=== PATIENT | female | born 1935 | race Caucasian/White ===

== ENCOUNTER → 2018-03-06 10:17 | Outpatient (CLI) | payer MEDICARE, OTHER, SELFPAY ==
--- NOTE | 2018-03-06 10:22 | BI_ITS ---
MAMMOGRAPHY - BILATERAL SCREENING REASON FOR EXAM: Female, 82 years old. Routine annual screening examination. PERTINENT HISTORY: Personal history of breast cancer. Mother with breast cancer. Aunts with breast cancer. History of prior bilateral lumpectomies. TECHNIQUE: Digital bilateral breast brown (3D mammographic acquisition) in the CC and MLO projections. 2-D mediolateral oblique (MLO) and craniocaudad (CC) views of both breasts were obtained. CAD: Full Field Digital Mammography with Computer Added Detection was performed. COMPARISON: Comparison is made with prior study dated February 08, 2016 and January 15, 2015 FINDINGS: Breast Composition: The breasts are heterogeneously dense, which may obscure small masses. There are no dominant masses or suspicious calcifications. Once again, the patient is status post bilateral lumpectomies with resultant deformities of both breasts. This is unchanged. No new mass lesion or cluster microcalcification is seen. No other significant abnormalities are identified. There has been no significant change since the prior study. BI/SCREENING MAMM (CAD), BILAT IMPRESSION: Stable bilateral screening mammogram. Yearly follow-up mammogram recommended. (A) ASSESSMENT CATEGORY: BIRADS Category 2: Benign. A letter regarding these results will be sent to the patient by the facility within 30 days. Approximately 10% of breast cancers are not detected by mammography. A normal mammogram should not delay biopsy of a clinically suspicious abnormality. [id number] Electronically Signed: Luis Benitez MD at 8:35 EST Tel [phone], Service support ,
== END ==
PROVIDERS: Family Provider Family Medicine; PCP Family Medicine; Referring Provider Radiology Radiation Oncology; Visit Provider Radiology Radiation Oncology
DX: Z12.31 Encounter for screening mammogram for malignant neoplasm of breast (principal); C50.812 Malignant neoplasm of overlapping sites of left female breast; Z80.3 Family history of malignant neoplasm of breast
CPT/HCPCS: 77063; 77067

== ENCOUNTER → 2018-06-10 | Outpatient (CLI) | payer MEDICARE, OTHER, SELFPAY ==
--- NOTE | 2018-06-10 11:00 | MRI_ITS ---
STUDY: MRI LUMBAR SPINE WITHOUT CONTRAST REASON FOR EXAM: Female, 83 years old. Low back pain and left-sided radicular symptoms. TECHNIQUE: Standardized fat and water weighted pulse sequences were obtained in the sagittal and axial planes. COMPARISON: None FINDINGS: T12-L1: Normal endplates. Normal disc height, signal and morphology. Normal bilateral facet joints. Normal central canal and bilateral lateral recesses. Normal bilateral intervertebral neural foramina. Normal lumbar lordosis. There is no substantial scoliosis. Normal conus medullaris that terminates at the L1 level. L1-2: There are Schmorl's nodes at the inferior endplate of L1 and superior endplate of L2. 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 There is mild annular disk bulge and osteophyte complex. There is mild degenerative arthropathy of the facet joints. Bilateral neuroforamina are narrowed without MR evidence for nerve impingement. There is no significant acquired central canal stenosis. L2-3: There is vacuum disc phenomenon. There appears to be a broad central disc protrusion with moderate acquired canal stenosis. Neuroforamina are moderately narrowed without definite nerve impingement. L3-4: There appears to be a large broad central disc protrusion. There is severe acquired canal stenosis with a probable impingement of the cauda equina. There is moderate degenerative arthropathy of facet joints. Neural foramina are bilaterally narrowed with possible impingement of the L3 nerve roots at the neural foramina. L4-5: There is grade 1 anterolisthesis at L4-5 with uncovering of the disc. There is severe acquired canal stenosis with probable impingement of the cauda equina. There is severe degenerative arthropathy of the facet joints. There is thickening of the ligamentum flavum. The neural foramina are severely narrowed with probable impingement of the right sided L4 nerve root at the neural foramen. There is narrowing of this disc. L5-S1: There is narrowing of this disc vacuum disc phenomenon. There is mild annular disk bulge and osteophyte complex. There is moderate degenerative arthropathy of the facet joints. Bilateral neuroforamina are narrowed with MR evidence for nerve impingement. There is no significant acquired central canal stenosis. Normal visualized sacral ala. Normal visualized paraspinous soft tissue structures. 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 Electronically Signed: Katelyn Mathews MD at 11:24 EDT , Service support ,
== END | disposition home or self-care (01) ==
LOC: MRI 10:50
PROVIDERS: Family Provider Family Medicine; PCP Family Medicine; Referring Provider Orthopaedic Surgery Orthopaedic Surgery of the Spine; Visit Provider Orthopaedic Surgery Orthopaedic Surgery of the Spine
DX: M43.16 Spondylolisthesis, lumbar region (principal); M51.36 Other intervertebral disc degeneration, lumbar region
CPT/HCPCS: 72148

== ENCOUNTER → 2018-07-24 09:00 | Outpatient (CLI) | payer MEDICARE, OTHER, SELFPAY ==
--- NOTE | 2018-07-24 13:09 | NEURO ---
NCS and/or EMG Patient Report Ordering Doctor: Lamine Stuart DATE OF SERVICE: 07/24/18 Brynn Haddad is an 83-year-old female presents for electrodiagnostic testing of the lower limbs. She reports numbness and tingling in both feet. Electrodiagnostic findings: Peroneal motor nerve demonstrates normal distal latency amplitude and conduction velocity bilaterally. Normal tibial motor response bilaterally. Normal tibial F waves. Normal left peroneal F-wave. Prolonged right peroneal F-wave. Prolonged H reflex noted bilaterally. Absent sural response bilaterally. Absent right superficial peroneal response. Absent right medial plantar response. Prolonged left median medial plantar latency. Needle EMG demonstrates no evidence of denervation in any muscles tested. Motor unit action potentials were normal amplitude and duration. Electrodiagnostic impression: This is an abnormal study in the lower limbs. 1. Electrodiagnostic findings suggestive of peripheral polyneuropathy, with primary involvement of sensory nerve fibers. 2. No electrodiagnostic evidence is noted for lumbosacral radiculopathy. If there are any further questions, please not hesitate to contact me.
== END ==
PROVIDERS: Family Provider Family Medicine; PCP Family Medicine; Referring Provider Orthopaedic Surgery Orthopaedic Surgery of the Spine; Visit Provider Orthopaedic Surgery Orthopaedic Surgery of the Spine
DX: M24.60 Ankylosis, unspecified joint (principal); M43.16 Spondylolisthesis, lumbar region; M51.36 Other intervertebral disc degeneration, lumbar region
CPT/HCPCS: 95886; 95912

== ENCOUNTER → 2020-02-16 13:39 | Outpatient (CLI) | payer MEDICARE, OTHER, SELFPAY ==
--- NOTE | 2020-02-16 13:45 | BI_ITS ---
MAMMOGRAPHY - BILATERAL SCREENING REASON FOR EXAM: Female, 84 years old. Routine annual screening examination. PERTINENT HISTORY: Personal history of breast cancer. Prior bilateral lumpectomies. Mother with breast cancer. Aunt with breast cancer. TECHNIQUE: Digital bilateral breast anjel (3D mammographic acquisition) in the CC and MLO projections. 2-D mediolateral oblique (MLO) and craniocaudad (CC) views of both breasts were obtained. CAD: Full Field Digital Mammography with Computer Added Detection was performed. COMPARISON: Comparison is made with prior study dated 03/06/2018 and 02/08/2016. FINDINGS: Breast Composition: The breasts are heterogeneously dense, which may obscure small masses. There are no dominant masses or suspicious calcifications. Stable bilateral breast deformities secondary to prior lumpectomies. No other significant abnormalities are identified. There has been no significant change since the prior study. BI/SCREEN MAMM (CAD) W/ANJEL BILAT IMPRESSION: Stable bilateral screening mammogram. Yearly follow-up mammogram recommended. (A) ASSESSMENT CATEGORY: BIRADS Category 2: Benign. A letter regarding these results will be sent to the patient by the facility within 30 days. Approximately 10% of breast cancers are not detected by mammography. A normal mammogram should not delay biopsy of a clinically suspicious abnormality. [id number] Electronically Signed: Luis Benitez, at 14:21 EST , Service support ,
== END ==
PROVIDERS: PCP Family Medicine; Referring Provider Radiology Radiation Oncology; Visit Provider Radiology Radiation Oncology
DX: Z12.31 Encounter for screening mammogram for malignant neoplasm of breast (principal)
CPT/HCPCS: 77063; 77067